=== PATIENT | female | born 1940 | race African-American/Black ===

== ENCOUNTER 2016-08-09 20:50 | Emergency (ER) | payer MEDICARE, OTHER ==
[~2016-08-09] VITALS: Ht 157.5 cm; Wt 81.8 kg
[~2016-08-09 20:50] MED LIST: ALLOPURINOL100 MG PO; AMLOPIDINE PO; ATENOLOL50 MG PO; BUDEPRION SR150 M1 PO; CENTRUM SILVER1 TA1 PO; DESYREL 50MG50 MG PO; DESYREL PO; FISH OIL1 IU PO; GARLIC SUPPLEM300 MG PO; NITROSTAT0.4 MG/TAB SL; NORVASC2.5 MG PO; PILOCARPINE OP; SIMCOR; SIMCOR 500 MG-21 TER PO; TENORMIN 5050 MG/TAB PO; VITAMIN B12 PO; WELLBUTRIN SR150 M1 PO; ZYLOPRIM 300MG300 MG PO
[2016-08-09 20:52] VITALS: TEMP 99.2
[2016-08-09 21:40] LABS: BASO % 0.2 % (0.0-2.0); GRAN % 55.6 % (42.2-75.2); HEMATOCRIT 44.4 % (37.0-47.0); HEMOGLOBIN 14.2 g/dl (12.5-16.0); LYMPH # 1.3 (1.2-3.4); LYMPH % 24.7 % (20.0-51.0); MEAN CELL VOLUME 81 fl (80.0-100.0); MEAN CORPUSCULAR HEMOGLOBIN 26 pg (27.0-31.0); MEAN CORPUSCULAR HGB CONC 32 g/dl (33.0-37.0); MEAN PLATELET VOLUME 10.7 fl (7.4-10.4); MONO % 19.3 % (1.7-9.3); PLATELET COUNT 125 K/mm3 (130-400); RED BLOOD COUNT 5.49 M/mm3 (4.10-5.30); REDCELL DISTRIBUTION WIDTH-CV 15.6 % (11.5-14.5); WHITE BLOOD COUNT 5.4 K/mm3 (4.8-10.8)
[2016-08-09 21:46] LABS: ADJUSTED CALCIUM 8.6 mg/dL (8.4-10.2); ALANINE AMINOTRANSFERASE 31 U/L (9-52); ALBUMIN 4.2 gm/dL (3.5-5.0); ALKALINE PHOSPHATASE 77 U/L (50-136); ANION GAP 12 mmol/L (7-16); BILIRUBIN,TOTAL 0.9 mg/dL (0.0-1.0); BLOOD UREA NITROGEN 11 mg/dL (7-17); CALCIUM 8.8 mg/dL (8.4-10.2); CARBON DIOXIDE 26 mmol/L (22-30); CHLORIDE 101 mmol/L (98-107); CREATININE, serum 0.87 mg/dL (0.52-1.25); GLUCOSE 89 mg/dL (74-106); POTASSIUM 3.8 mmol/L (3.4-5.0); SODIUM 139 mmol/L (137-145); TOTAL PROTEIN 7.4 gm/dL (6.4-8.2)
[2016-08-09 21:51] LABS: INFLUENZA B NEGATIVE
[2016-08-09 21:58] LABS: B-TYPE NATRIURETIC PEPTIDE 67 pg/mL (0-450)
[2016-08-09 21:59] LABS: TROPONIN-I < 0.012 ng/mL (0.000-0.034)
[2016-08-09] MEDS ORDERED: ZITHROMAX 250M250 MG PO (22:22)
[2016-08-09] MEDS ORDERED: PREDNISONE20 MG PO (22:22)
[2016-08-09 22:33] VITALS: BP 154/87; PULSE 73
== END 2016-08-09 22:33 | disposition home or self-care (01) ==
LOC: COL.ER 20:50
PROVIDERS: Emergency Medicine
DX: J20.9 Acute bronchitis, unspecified (principal); F17.210 Nicotine dependence, cigarettes, uncomplicated; I10 Essential (primary) hypertension
CPT/HCPCS: J7512

== ENCOUNTER → 2016-12-27 | Outpatient (CLI) | payer MEDICARE ==
[~2016-12-27] MED LIST changes: +PREDNISONE20 MG PO; +ZITHROMAX 250M250 MG PO
== END ==
LOC: MC.RAD 13:45
DX: Z12.31 Encounter for screening mammogram for malignant neoplasm of breast (principal)

== ENCOUNTER → 2018-04-14 | Outpatient (CLI) | payer MEDICARE, OTHER | LOC: MC.RAD 14:00 | DX: Z12.31 Encounter for screening mammogram for malignant neoplasm of breast (principal) ==

== ENCOUNTER 2018-10-17 01:33 | Emergency (ER) | payer MEDICARE, OTHER ==
[~2018-10-17] VITALS: Ht 160 cm; Wt 81.8 kg
[2018-10-17 01:39] VITALS: TEMP 98.2
[2018-10-17 01:54] LABS: BASO % 0.4 % (0.0-2.0); EOS # 0.1 (0.0-0.7); EOS % 0.8 % (0-4.0); GRAN % 54.7 % (42.2-75.2); HEMATOCRIT 48.1 % (37.0-47.0); LYMPH # 3.7 (1.2-3.4); LYMPH % 33.9 % (20.0-51.0); MEAN CELL VOLUME 84 fl (80.0-100.0); MEAN CORPUSCULAR HEMOGLOBIN 26 pg (27.0-31.0); MEAN CORPUSCULAR HGB CONC 31 g/dl (33.0-37.0); MEAN PLATELET VOLUME 11.9 fl (7.4-10.4); MONO # 1.1 (0.1-0.6); MONO % 9.7 % (1.7-9.3); PLATELET COUNT 170 K/mm3 (130-400); RED BLOOD COUNT 5.74 M/mm3 (4.10-5.30); REDCELL DISTRIBUTION WIDTH-CV 15.6 % (11.5-14.5)
[2018-10-17 02:08] LABS: ALANINE AMINOTRANSFERASE 10 U/L (9-52); ALBUMIN 4.7 gm/dL (3.5-5.0); ALKALINE PHOSPHATASE 111 U/L (50-136); ANION GAP 12 mmol/L (7-16); AST,SGOT 30 U/L (15-37); BILIRUBIN,TOTAL 0.6 mg/dL (0.0-1.0); BLOOD UREA NITROGEN 14 mg/dL (7-17); CALCIUM 9.2 mg/dL (8.4-10.2); CARBON DIOXIDE 27 mmol/L (22-30); CHLORIDE 104 mmol/L (98-107); CREATININE, serum 0.97 (0.52-1.25); GLUCOSE 115 mg/dL (74-106); POTASSIUM 3.9 mmol/L (3.4-5.0); SODIUM 143 mmol/L (137-145); TOTAL PROTEIN 8.1 gm/dL (6.4-8.2)
[2018-10-17 02:22] LABS: TROPONIN-I < 0.012 ng/mL (0.000-0.035)
[2018-10-17] MEDS ORDERED: CATAPRES 0.1MG0.1 MG PO (03:51)
[2018-10-17 04:14] VITALS: BP 124/53; PULSE 52
== END 2018-10-17 04:10 | disposition home or self-care (01) ==
LOC: COL.ER 01:33
PROVIDERS: Emergency Medicine
DX: I10 Essential (primary) hypertension (principal); E78.5 Hyperlipidemia, unspecified

== ENCOUNTER 2020-04-12 11:54 | Emergency (ER) | payer MEDICARE, OTHER ==
[~2020-04-12] VITALS: Ht 165.1 cm; Wt 86.4 kg
[~2020-04-12 11:54] MED LIST changes: +CATAPRES 0.1MG0.1 MG PO
[2020-04-12 11:55] VITALS: TEMP 98.3
[2020-04-12] MEDS ORDERED: TOPROL XL 50MG50 MG (12:05)
[2020-04-12 12:45] LABS: HEMATOCRIT 44.9 % (37.0-47.0); HEMOGLOBIN 13.9 g/dl (12.5-16.0); MEAN CELL VOLUME 82 fl (80.0-100.0); MEAN CORPUSCULAR HEMOGLOBIN 25 pg (27.0-31.0); MEAN CORPUSCULAR HGB CONC 31 g/dl (33.0-37.0); MEAN PLATELET VOLUME 9.7 fl (7.4-10.4); PLATELET COUNT 162 K/mm3 (130-400); RED BLOOD COUNT 5.48 M/mm3 (4.10-5.30); REDCELL DISTRIBUTION WIDTH-CV 14.6 % (11.5-14.5)
[2020-04-12 12:47] LABS: PROTHROMBIN TIME 11.2 SECONDS (9.7-12.8)
[2020-04-12 12:50] LABS: PARTIAL THROMBOPLASTIN TIME 36.5 SECONDS (26.0-37.0)
[2020-04-12 12:54] LABS: ALBUMIN 4.3 gm/dL (3.5-5.0); CALCIUM 8.4 mg/dL (8.4-10.2); CREATININE, serum 0.99 (0.52-1.25); POTASSIUM 4.1 mmol/L (3.4-5.0); TOTAL PROTEIN 7.2 gm/dL (6.4-8.2)
[2020-04-12 13:05] LABS: TROPONIN-I 0.024 ng/mL (0.000-0.035)
[2020-04-12 13:07] LABS: EOSINOPHIL 2 % (0-4); LYMPHOCYTE 14 % (20.0-51.0); NEUTROPHILS 78 % (42.0-75.2); PLATELET ESTIMATE NORMAL (NORMAL)
[2020-04-12 13:23] LABS: TSH w REFLEX 1.29 uIU/mL (0.465-4.680)
[2020-04-12] MEDS ORDERED: LOPRESSOR 550 MG/TAB PO (13:36)
[2020-04-12 13:47] VITALS: BP 143/65; PULSE 75
== END 2020-04-12 13:52 | disposition home or self-care (01) ==
LOC: COL.ER 11:54
PROVIDERS: Family Medicine
DX: I47.1 Supraventricular tachycardia (principal); I10 Essential (primary) hypertension; F17.200 Nicotine dependence, unspecified, uncomplicated; Z79.899 Other long term (current) drug therapy

== ENCOUNTER 2020-08-30 06:59 | Day surgery (SDC) | payer MEDICARE, OTHER ==
[~2020-08-30] VITALS: Ht 165.1 cm; Wt 84.4 kg
[2020-08-30] VITALS (14 sets, daily range): BP systolic 96–155; BP diastolic 45–74; PULSE 61–73; TEMP 97.4–98.6
[~2020-08-30 06:59] MED LIST changes: +LOPRESSOR 550 MG/TAB PO; +TOPROL XL 50MG50 MG
[2020-08-30] MEDS ORDERED: NORVASC 5MG5 MG/TAB PO (07:22)
[2020-08-30] MEDS ORDERED: ASPIRIN E.C. 8181 MG PO (07:22)
[2020-08-30] MEDS ORDERED: TOPROL XL 50MG50 MG PO (07:23)
[2020-08-30] MEDS ORDERED: WELLBUTRIN SR150 M1 PO (07:23)
[2020-08-30] MEDS ORDERED: ZOCOR 20MG20 MG PO (07:24)
[2020-08-30] MEDS ORDERED: VITAMIN FLUSH-F1 CAP PO (07:24)
[2020-08-30 08:29] LABS: HEMATOCRIT 43.7 % (37.0-47.0); HEMOGLOBIN 13.5 g/dl (12.5-16.0); MEAN CELL VOLUME 80 fl (80.0-100.0); MEAN CORPUSCULAR HEMOGLOBIN 25 pg (27.0-31.0); MEAN CORPUSCULAR HGB CONC 31 g/dl (33.0-37.0); MEAN PLATELET VOLUME 10.4 fl (7.4-10.4); PLATELET COUNT 190 K/mm3 (130-400); RED BLOOD COUNT 5.49 M/mm3 (4.10-5.30); REDCELL DISTRIBUTION WIDTH-CV 15.3 % (11.5-14.5)
[2020-08-30 08:36] LABS: INR 1.1 (0.8-3.0); PROTHROMBIN TIME 12.1 SECONDS (9.7-12.8)
[2020-08-30 08:38] LABS: ALBUMIN 4.2 gm/dL (3.5-5.0); BILIRUBIN,TOTAL 0.6 mg/dL (0.0-1.0); CALCIUM 8.9 mg/dL (8.4-10.2); CREATININE, serum 1.06 (0.52-1.25); MAGNESIUM 2.4 mg/dL (1.6-2.3); POTASSIUM 4.1 mmol/L (3.4-5.0); TOTAL PROTEIN 7.5 gm/dL (6.4-8.2)
--- NOTE | 2020-08-30 09:47 | NUR ---
SEE MERGE DOCUMENTATION FOR MEDICATION ADMINISTRATION AND INTRA/POST PROCEDURE ASSESSMENTS.
--- NOTE | 2020-08-30 11:00 | NUR ---
Pt recently arrived from having pacemaker placed. She is doing well and has no complaints of pain. She states that her stomach hurts and is slightly nauseated. She feels it is due to not eating. Crackers given to her at this time. No other complaints. Drsg to left chest wall is CDI. Pt does have a visitor with her at this time
--- NOTE | 2020-08-30 16:31 | NUR ---
Pt doing well. She has been up and voided with no difficulty. She states that she is overall feeling better and requested some ice cream and I then ordered her a dinner tray. She is having some pain at the incision site, pain medication requested. No other needs, will continue to monitor
--- NOTE | 2020-08-30 17:53 | NUR ---
Pt taking PO well with no complaints. She is currently resting with her eyes closed and even non labored breathing
--- NOTE | 2020-08-30 20:00 | NUR ---
Assessment complete. Patient is alert and oriented but very [place]; Some communication is written down to ensure proper education. Patient has no complaints of pain. Left chest pacemaker insertion site is CDI and HR is normal/regular. No edema is noted. No new concerns, call light in reach.
[2020-08-31 00:36] VITALS: BP 126/61; PULSE 64; TEMP 98.1
[2020-08-31 04:33] VITALS: BP 136/54; PULSE 69; TEMP 98
[2020-08-31 06:19] LABS: BASO % 0.2 % (0.0-2.0); EOS % 0.4 % (0-4.0); GRAN # 7.4 (1.4-6.5); GRAN % 67.3 % (42.2-75.2); HEMATOCRIT 40.8 % (37.0-47.0); HEMOGLOBIN 12.2 g/dl (12.5-16.0); LYMPH # 2.4 (1.2-3.4); LYMPH % 21.6 % (20.0-51.0); MEAN CELL VOLUME 81 fl (80.0-100.0); MEAN CORPUSCULAR HEMOGLOBIN 24 pg (27.0-31.0); MEAN CORPUSCULAR HGB CONC 30 g/dl (33.0-37.0); MONO # 1.1 (0.1-0.6); MONO % 10.1 % (1.7-9.3); PLATELET COUNT 155 K/mm3 (130-400); RED BLOOD COUNT 5.02 M/mm3 (4.10-5.30); REDCELL DISTRIBUTION WIDTH-CV 15.5 % (11.5-14.5)
[2020-08-31 06:30] LABS: ALBUMIN 3.8 gm/dL (3.5-5.0); BILIRUBIN,TOTAL 0.3 mg/dL (0.0-1.0); CALCIUM 8.3 mg/dL (8.4-10.2); CREATININE, serum 1.02 (0.52-1.25); TOTAL PROTEIN 6.6 gm/dL (6.4-8.2)
--- NOTE | 2020-08-31 06:33 | NUR ---
Patient had a spell of nausea once overnight and received 4mg PRN Zofran, which relieved the nausea. She is currently resting comfortably in bed. Pacemaker interrogation has been completed.
[2020-08-31 07:26] VITALS: BP 119/50; PULSE 65; TEMP 98.4
[2020-08-31] MEDS ORDERED: TOPROL XL 25MG25 MG PO (09:34)
[2020-08-31] MEDS ORDERED: CEPHALEXIN500 M1 PO (09:47)
--- NOTE | 2020-08-31 10:43 | NUR ---
Initial visit; Patient thanked Solutions Operator for looking in on her and offering God's blessings and keeping her in Solutions Operator's prayers.
--- NOTE | 2020-08-31 12:05 | NUR ---
Discharge orders reviewed with the patient and her friend Liberty, instructed to keep arm in immobilizer as much as possible, no lifting greater than 10 lbs and not to move arm above level of the chest or above her head, instructed that she can shower tonight and to leave steri strips in place, incision dressing is C/D/I at time of discharge, discussed meds and med chagnes, started her on an antibiotic for 5 days/ script for Keflex sent to [facility] for her, discussed changes to Metoprolol and Norvas, instructed patient to follow up with Cardiolgoy as we have scheduled for her, she verbalized understanding of teaching, IV and tele removed, leaving with her friends HEAVENLY Koenig escorted her ou tthe door by wheelchair
== END 2020-08-31 12:11 | disposition home or self-care (01) ==
LOC: COL.CAR 06:59 → MEDICAL 10:45 → COL.CAR 08-31 12:11
PROVIDERS: Internal Medicine Cardiovascular Disease
DX: I49.5 Sick sinus syndrome (principal); I47.1 Supraventricular tachycardia; I10 Essential (primary) hypertension; I08.1 Rheumatic disorders of both mitral and tricuspid valves; Z20.822 Contact with and (suspected) exposure to COVID-19; Z79.899 Other long term (current) drug therapy; Z79.82 Long term (current) use of aspirin
CPT/HCPCS: OP; C1769; C1785; C1894; C1898; J0690; J2250; J2405; J3010; J7030

== ENCOUNTER 2021-02-06 23:03 | Emergency (ER) | payer MEDICARE, OTHER ==
[~2021-02-06] VITALS: Ht 157.5 cm; Wt 81.8 kg
[~2021-02-06 23:03] MED LIST changes: +ASPIRIN E.C. 8181 MG PO; +CEPHALEXIN500 M1 PO; +NORVASC 5MG5 MG/TAB PO; +TOPROL XL 25MG25 MG PO; +TOPROL XL 50MG50 MG PO; +VITAMIN FLUSH-F1 CAP PO; +ZOCOR 20MG20 MG PO
[2021-02-06 23:47] LABS: BASO # 0.1 (0.0-0.2); BASO % 0.5 % (0.0-2.0); EOS # 0.1 (0.0-0.7); EOS % 0.7 % (0-4.0); GRAN % 59.2 % (42.2-75.2); HEMATOCRIT 45.3 % (37.0-47.0); HEMOGLOBIN 14.1 g/dl (12.5-16.0); LYMPH # 2.9 (1.2-3.4); LYMPH % 28.9 % (20.0-51.0); MEAN CELL VOLUME 79 fl (80.0-100.0); MEAN CORPUSCULAR HEMOGLOBIN 25 pg (27.0-31.0); MEAN CORPUSCULAR HGB CONC 31 g/dl (33.0-37.0); MEAN PLATELET VOLUME 11.1 fl (7.4-10.4); MONO % 10.3 % (1.7-9.3); PLATELET COUNT 175 K/mm3 (130-400); RED BLOOD COUNT 5.71 M/mm3 (4.10-5.30); REDCELL DISTRIBUTION WIDTH-CV 16.4 % (11.5-14.5)
[2021-02-07 00:06] LABS: ALANINE AMINOTRANSFERASE 20 U/L (4-34); ALBUMIN 4.4 gm/dL (3.5-5.0); ALKALINE PHOSPHATASE 86 U/L (50-136); ANION GAP 8 mmol/L (7-16); AST,SGOT 37 U/L (15-37); BILIRUBIN,TOTAL 0.5 mg/dL (0.0-1.0); BLOOD UREA NITROGEN 15 mg/dL (7-17); CALCIUM 8.6 mg/dL (8.4-10.2); CARBON DIOXIDE 24 mmol/L (22-30); CHLORIDE 105 mmol/L (98-107); CREATININE, serum 1.01 (0.52-1.25); GLUCOSE 135 mg/dL (74-106); POTASSIUM 4.2 mmol/L (3.4-5.0); SODIUM 138 mmol/L (137-145); TOTAL PROTEIN 7.7 gm/dL (6.4-8.2)
[2021-02-07 00:21] LABS: TROPONIN-I < 0.012 ng/mL (0.000-0.035)
[2021-02-07 01:08] LABS: COLLECTION METHOD CLEAN CATCH
[2021-02-07 01:14] LABS: MUCOUS Present /lpf; PH 6 (5-8); URINE APPEARANCE Clear; URINE BACTERIA None Seen /hpf; URINE BILIRUBIN Negative (NEGATIVE); URINE BLOOD Negative (NEGATIVE); URINE COLOR Yellow; URINE GLUCOSE Negative (NEGATIVE); URINE KETONE Negative (NEGATIVE); URINE LEUKOCYTE ESTERASE Negative (NEGATIVE); URINE NITRATE Negative (NEGATIVE); URINE PROTEIN(semi-quant) Negative (NEGATIVE); URINE RBC 0-2 /hpf; URINE UROBILINOGEN Negative (NEGATIVE)
[2021-02-07 01:22] VITALS: BP 150/84; PULSE 69
== END 2021-02-07 01:35 | disposition home or self-care (01) ==
LOC: COL.ER 23:03
PROVIDERS: Emergency Medicine
DX: I10 Essential (primary) hypertension (principal); E78.5 Hyperlipidemia, unspecified; Z79.899 Other long term (current) drug therapy; Z95.0 Presence of cardiac pacemaker

== ENCOUNTER → 2024-01-16 | Outpatient (CLI) | payer MEDICARE ==
[~2024-01-16] MED LIST changes: +LIPITOR20 MG PO; +PRINIVIL5 MG PO; +TOPROL XL100 MG PO; +ZESTRIL 10MG10 MG PO
== END ==
LOC: MC.RAD 14:23
DX: Z12.31 Encounter for screening mammogram for malignant neoplasm of breast (principal); Z95.0 Presence of cardiac pacemaker

== ENCOUNTER 2024-03-06 00:30 | Inpatient (IN) | payer MEDICARE ==
[2024-03-06] VITALS (12 sets, daily range): BP systolic 128–155; BP diastolic 73–105; PULSE 69–72; TEMP 97.7–101
[~2024-03-06] VITALS: Ht 162.6 cm; Wt 83.2 kg
[~2024-03-06 00:30] MED LIST changes: +Topical Skin Adhesive 1 EACH (1 ML) TOP ONE
[2024-03-06] MEDS ORDERED: LR 1,000 ML IV ONE (00:45)
[2024-03-06] MEDS ORDERED: Ondansetron 4 MG/2 ML VIAL IV ONE ×2 (00:45→01:45)
[2024-03-06] MEDS ORDERED: Morphine 4 MG/ML VIAL IV ONE (00:45)
[2024-03-06 01:24] LABS: BASO # 0.1 K/mm3 (0.0-0.2); BASO % 0.4 % (0.0-2.0); EOS % 0.1 % (0.0-4.0); GRAN # 10.6 K/mm3 (1.4-6.5); GRAN % 77.5 % (42.2-75.2); HEMATOCRIT 45.3 % (37.0-47.0); HEMOGLOBIN 13.8 g/dl (12.5-16.0); LYMPH # 2.3 K/mm3 (1.2-3.4); LYMPH % 16.8 % (20.0-51.0); MEAN CELL VOLUME 82 fl (80.0-100.0); MEAN CORPUSCULAR HEMOGLOBIN 25 pg (27-31); MEAN CORPUSCULAR HGB CONC 31 g/dl (33.0-37.0); MEAN PLATELET VOLUME 10.9 fl (7.4-10.4); MONO # 0.6 K/mm3 (0.1-0.6); MONO % 4.7 % (1.7-9.3); PLATELET COUNT 137 K/mm3 (130-400); REDCELL DISTRIBUTION WIDTH-CV 15.7 % (11.5-14.5)
[2024-03-06 01:35] LABS: BILIRUBIN,TOTAL 0.9 mg/dL (0.2-1.2); C-REACTIVE PROTEIN 0.34 mg/dL (0.00-0.50); CALCIUM 9.5 mg/dL (8.4-10.2); CREATININE, serum 1.01 mg/dL (0.57-1.11); POTASSIUM 4.3 mEq/L (3.5-4.5); TOTAL PROTEIN 7.1 g/dl (6.2-8.1)
[2024-03-06 01:40] LABS: TROPONIN-I 0.012 ng/mL (0.00-0.033)
[2024-03-06] MEDS ORDERED: Iohexol 300 - 100 ML VIAL IV ONE (02:09)
[2024-03-06] MEDS ORDERED: NS 50 ML IV ONE (02:10)
[2024-03-06 03:03] LABS: COLLECTION METHOD CLEAN CATCH
[2024-03-06] MEDS ORDERED: VIIBRYD10 MG PO (03:15)
[2024-03-06] MEDS ORDERED: ZEBETA10 MG PO (03:16)
[2024-03-06] MEDS ORDERED: BENICAR 20MG TA20 MG PO (03:17)
[2024-03-06] MEDS ORDERED: HCTZ 25MG TAB25 MG PO (03:18)
[2024-03-06 03:20] LABS: URINE APPEARANCE CLEAR (CLEAR/HAZY); URINE BLOOD NEGATIVE (NEGATIVE); URINE COLOR YELLOW (YELLOW); URINE GLUCOSE NEGATIVE (NEGATIVE); URINE KETONE TRACE (NEGATIVE); URINE NITRATE NEGATIVE (NEGATIVE); URINE PROTEIN(semi-quant) NEGATIVE (NEGATIVE); URINE UROBILINOGEN 0.2 E.U/dL (0.2-1.0)
[2024-03-06] MEDS ORDERED: Acetaminophen 500 MG TAB PO PRN (03:30)
[2024-03-06] MEDS ORDERED: Ondansetron 4 MG/2 ML VIAL IV PRN ×2 (03:30→23:15)
[2024-03-06] MEDS ORDERED: Morphine 4 MG/ML VIAL IV PRN (03:45)
[2024-03-06] MEDS ORDERED: NS 1,000 ML IV SCH (03:45)
--- NOTE | 2024-03-06 04:18 | NUR ---
PATIENT ADMITTED TO ROOM 327 BROUGHT BY BED FROM ED AND ACCOMPANIED BY SON, Yeimi. VS ARE : BP 155/105 WITH MAP 115. TEMP 97.7, PULSE 69, O2 97 % ON 2L O2 NC, RR 14. PATIENT UNABLE TO ANSWER ASSESSMENT QUESTIONS D/T AMS AND HARD OF HEARING. CALL PLACED TO HOSPITALIST FOR HYPERTENSION. TORB TO ADMINISTER 10MG HYDRALAZINE FOR SYSTOLIC GREATER THAN 160 AND DIASTOLIC GREATER THAN 1OO Q6HR PRN GIVEN.
--- NOTE | 2024-03-06 05:14 | NUR ---
CANNOT ADMIT PATIENT MEDITECH IS LOCKED IN ACK/RECIEVE ORDER. IT HAS BEEN CALLED TICKET # [id number]. ETA FOR RESOLUTION IS 4HRS. CHARGE NURSE AND OCCUPATIONAL THERAPIST'S ASSISTANT AWARE. PATIENT BP IS STABLE AT 152/75. NO PLAN OF CARE OR ORDERS CAN BE PLACED AT THIS TIME. INTAKE AND ASSESSMENT FINISHED WITH MED REC.
--- NOTE | 2024-03-06 05:43 | NUR ---
IT ISSUE FINALLY RESOLVED. PLAN OF CARE FILED ADDITIONAL INTERVENTIONS AND ORDERS IN PROGRESS.
[2024-03-06] MEDS ORDERED: hydrALAZINE 20 MG/ML 1 ML VIAL IV PRN (06:15)
--- NOTE | 2024-03-06 09:00 | NUR ---
PATIENT ALERT AND ORIENTED TO NAME AND DAY OF NOT YEAR. ON 2 L /. FLUIDS INFUSING PER EMAR. PATIENT CURRETLY NPO STATUS. DENIES PAIN AT THIS TIME BUT SOME DISCOMFORT TO RIGHT UPPER QUADRANT WITH PALPATION.FAMILY AT BEDSIDE. CALL LIGHT WITHIN REACH. BED AT LOWEST POSITION.BED ALARM ON.
--- NOTE | 2024-03-06 09:55 | NUR ---
Director Of Content Marketing met with patient at bedside to discuss discharge planning. Patient stated that she lives alone in [place]. Patient designated her son Cam as her emergency contact (P# [phone]) but that she was "not sure" if she had a DPOA. When asked, patient declined the want to arrange one at this time. Patient reports that her PCP is Dr. Tsai and that her pharmacy of choice is [facility] in [place]. She denied any need for assistance in accessing and affording her medications, and any use of DMEs or home health services, and confirmed that she is independent with ADLs and transportation. Due to the patient's Re-Admit status, SW asked patient about any interest in home health services, but patient declined at this time. Home Health services list was left with patient at bedside. Patient declined any further concerns regarding discharge at this time. Plan: D/C to home.
--- NOTE | 2024-03-06 10:04 | NUR ---
Bus Greaser met with patient and son Yeimi (P#[phone]) at bedside to discuss discharge planning. Prior to meeting with patient, SW spoke with PT who mentioned a possible need for SNF placement. Patient was awake for some time, but fell asleep during the conversation, but son was able to answer questions for SW. Per son, the patient lives in [facility] with him, but does not have a DPOA at this time. Son relayed that her PCP is Dr. Tsai and that her pharmacy of choice is [facility]. Patient's son reports that she is independent in ADLs and Transportation, and that she does own a walker and a cane at home but that she "hardly ever" uses the walker. Patient's son reports that she has not utilized home health services in the past. concession worker discussed possible placement options and post-discharge care with son. Patient's son was agreeable to education about SNF, but stated that his mother may be more comfortable with services in the home due to her preference for independence. SW answered any questions and provided son and patient with Medicare.gov lists for SNF and HH services. SW to return to speak with patient and family to further discuss discharge planning. Plan: SNF or Home Health
[2024-03-06] MEDS ORDERED: NIACIN 64 MG-501 TA1 PO (10:11)
[2024-03-06] MEDS ORDERED: ZOCOR 20MG20 MG PO (10:15)
[2024-03-06] MEDS ORDERED: Indocyanine Green 12.5 MG in Water For Injection,Sterile 2.5 ML IV ONE (13:30)
--- NOTE | 2024-03-06 20:00 | NUR ---
DR ISIDORO ESPINOZAIED PER PHONE OF PT'S TEMP OF 101.6 AX, 101.0 ORAL, ORDER REC'D FOR TYLENOL SUPPOSITORY, SUPP GIVEN.
--- NOTE | 2024-03-06 21:51 | NUR ---
RECHECKED TEMP 101 AX AT THIS TIME
[2024-03-06] MEDS ORDERED: Lidocaine PF 2% (20 MG/ML) 5 ML VIAL ONE (22:13)
[2024-03-06] MEDS ORDERED: fentaNYL 50 MCG/ML 5 ML VIAL ONE (22:13)
[2024-03-06] MEDS ORDERED: Rocuronium 50 MG/5 ML Multi-Dose VIAL ONE (22:13)
--- NOTE | 2024-03-06 22:40 | NUR ---
PT TRANSPORTED TO PRE OP PER BED WITH PIPE AND TANK FABRICATOR ZACH, LR INFUSING PER PIV PER GRAVITY. FAMILY HAS LEFT FOR THE NIGHT, PT IS SOMEWHAT ANXIOUS ABOUT THE SURGERY, ZACH WILL LET DR CHAUDHRY KNOW HER CONCERNS.
[2024-03-06] MEDS ORDERED: HYDROmorphone 1 MG/1 ML SYRINGE [PACU/SDC ONLY] IV PRN (23:15)
[2024-03-06] MEDS ORDERED: Meperidine 50 MG/ML 1 ML VIAL IV PRN (23:15)
[2024-03-06] MEDS ORDERED: fentaNYL 50 MCG/ML 1 ML SYRINGE/VIAL [PACU/SDC ONLY] IV PRN (23:15)
[2024-03-06] MEDS ORDERED: Morphine 2 MG/1 ML VIAL [PACU/SDC ONLY] IV PRN (23:15)
[2024-03-06] MEDS ORDERED: droPERidol 2.5 MG/ML 2 ML VIAL IV PRN (23:15)
[2024-03-06] MEDS ORDERED: dexAMETHasone 10 MG/ML VIAL ONE (23:21)
[2024-03-06] MEDS ORDERED: Ondansetron 4 MG/2 ML VIAL ONE (23:21)
[2024-03-07] VITALS (16 sets, daily range): BP systolic 116–150; BP diastolic 57–77; PULSE 69–76; TEMP 97.6–99
[2024-03-07] MEDS ORDERED: Glycopyrrolate 0.2 MG/ML 1 ML VIAL ONE (00:02)
[2024-03-07] MEDS ORDERED: AMOXICILLIN 8751 TAB PO (00:19)
[2024-03-07] MEDS ORDERED: NORCO 325 MG-51 TAB PO (00:19)
--- NOTE | 2024-03-07 01:10 | NUR ---
PT RETURNED FROM PACU, AWAKE, BUT DROWSY, IVF INFUSING PER PIV IN LAC, X5 LAP SITES WITH GLUE, SMALL AMT OF OOZING FROM UMBILICAL SITE, NO C/O PAIN OR NAUSEA AT THIS TIME. ZACH, SECURITY AND PRIVACY CONSULTANT, LEFT VOICEMAIL MESSAGE FOR PT'S SON. PT ON 2L O2 PER NC, PLACED ON DYNAMAP FOR POST OP MONITORING. RETURNED FROM PACU WITH BOTH HEARING AIDES, RIGHT SIDE IN EAR AND LEFT SIDE IN PLASTIC CONTAINER AT BEDSIDE.
[2024-03-07 06:13] LABS: BASO % 0.1 % (0.0-2.0); GRAN # 14.3 K/mm3 (1.4-6.5); HEMATOCRIT 39.5 % (37.0-47.0); HEMOGLOBIN 12.3 g/dl (12.5-16.0); LYMPH # 1.3 K/mm3 (1.2-3.4); LYMPH % 7.6 % (20.0-51.0); MEAN CELL VOLUME 81 fl (80.0-100.0); MEAN CORPUSCULAR HEMOGLOBIN 25 pg (27-31); MEAN CORPUSCULAR HGB CONC 31 g/dl (33.0-37.0); MEAN PLATELET VOLUME 11.6 fl (7.4-10.4); MONO # 0.7 K/mm3 (0.1-0.6); MONO % 4.1 % (1.7-9.3); PLATELET COUNT 107 K/mm3 (130-400); RED BLOOD COUNT 4.88 M/mm3 (4.10-5.30); REDCELL DISTRIBUTION WIDTH-CV 15.9 % (11.5-14.5)
[2024-03-07 06:34] LABS: CREATININE, serum 1.02 mg/dL (0.57-1.11); POTASSIUM 3.9 mEq/L (3.5-4.5)
--- NOTE | 2024-03-07 06:40 | NUR ---
Pt laying in bed. Denies needs at this time. Call light in reach and bed alarm on.
--- NOTE | 2024-03-07 07:06 | NUR ---
PT AWAKE AND ALERT THIS AM, REMAINS ON 2L O2 PER NC, IVF INFUSING PER PIV, TAKING SMALL AMTS OF CLEAR LIQUIDS, NO N/V AND MINIMAL DISCOMFORT TO ABDOMEN. SMALL AMT OF OOZING FROM UMBILICAL OP SITE, OTHER 4 SITES CDI. NO VOID YET
--- NOTE | 2024-03-07 07:53 | NUR ---
Pt laying in bed. Ambulated to bathroom with assistance. A&Ox4. Extremely TEJON. S1S2. Clear lungs. Pt coughing but not productive. ABD round, soft, tender to touch with audible bowel sounds. Pt reported pain 4/10 when moving. Resolved when laying down. Administered Tylenol for comfort. x5 lap sites - upper had mild drainage - placed bandaid. Other 4 are open to air. No further needs. IV in L AC patent with NS at 100 cc/hr. Call light in reach and bed alarm on.
[2024-03-07] MEDS ORDERED: hydroCHLOROthiazide 25 MG TAB PO SCH (09:30)
[2024-03-07] MEDS ORDERED: Olmesartan 20 MG **** subs to Losartan 50 MG PO SCH (09:30)
[2024-03-07] MEDS ORDERED: Losartan 50 MG TAB PO SCH ×2 (09:45→21:00)
[2024-03-07] MEDS ORDERED: Bisoprolol 5 MG TAB PO SCH (10:32)
--- NOTE | 2024-03-07 11:44 | NUR ---
Data: Patient declined spiritual care visit offered during Manufacturer'S Service Representative rounds. Patient would like Manufacturer'S Service Representative to return in the afternoon because she did not sleep well. Assessment: None at this time. Plan of Care: Manufacturer'S Service Representative will return in the afternoon.
--- NOTE | 2024-03-07 11:48 | NUR ---
Social Workers met with patient at bedside to further discuss discharge planning. Patient relayed some confusion regarding her need for either SNF or HH services. Social workers provided education about the services provided through SNF and HH services, as well as recommendations made by PT. After discussion, patient was understanding and agreeable to considering SNF options. Social Workers re-presented patient with Medicare.gov lists for SNF and HH services. Patient stated that she was agreeable to referrals being sent to [facility], [facility], and [facility] but did not state a preference at this time, as long as the facility is within [place]. BENITA faxed referrals to [facility], [facility], and [facility]. Earle contacted SW and asked that a COVID test be done on patient. BENITA contacted SURG nurse and is waiting on confirmation. Plan: D/C to SNF
--- NOTE | 2024-03-07 12:32 | NUR ---
Data: Follow-up visit for afternoon spiritual care. Patient's Daughter is visiting. Patient's lunch has arrived. Assessment: None at this time. Plan of Care: Allow time for Daughter to visit and for Patient to eat lunch. Clothing And Textiles Teacher provided a prayer for the meal and for healing. Patient's Daughter thanked Clothing And Textiles Teacher. Chaplains will remain available as needed/requested while Patient is admitted to this hospital.
[2024-03-08] VITALS (12 sets, daily range): BP systolic 115–165; BP diastolic 68–80; PULSE 67–70; TEMP 98–99.2
--- NOTE | 2024-03-08 02:28 | NUR ---
PATIENT RESTING IN BED WITH TV ON WITH NO FAMILY PRESENT WITH NO ACUTE DISTRESS NOTED. PATIENT ON 1 LITERS OF OXYGEN VIA NC. INT TO LEFT AC INTACT WITH NO COMPLICATIONS NOTED. ASSESSMENT AND MEDICATION ADMINISTRATION COMPLETED AT THIS TIME. PATIENT REQUESTED CUP OF WATER AND WAS GIVEN CUP OF ICE WATER. PATIENT TOLERATED WELL. ALL NEEDS MET. BED IN LOW POSITION WITH WHEELS LOCKED WITH RAILS UP X3 AND CALL LIGHT WITHIN REACH. BED ALARM ON.
[2024-03-08 05:31] LABS: BASO % 0.1 % (0.0-2.0); GRAN # 13.8 K/mm3 (1.4-6.5); GRAN % 82.5 % (42.2-75.2); HEMATOCRIT 37.6 % (37.0-47.0); HEMOGLOBIN 11.7 g/dl (12.5-16.0); LYMPH # 1.6 K/mm3 (1.2-3.4); LYMPH % 9.4 % (20.0-51.0); MEAN CELL VOLUME 81 fl (80.0-100.0); MEAN CORPUSCULAR HEMOGLOBIN 25 pg (27-31); MEAN CORPUSCULAR HGB CONC 31 g/dl (33.0-37.0); MEAN PLATELET VOLUME 11.9 fl (7.4-10.4); MONO # 1.2 K/mm3 (0.1-0.6); MONO % 7.2 % (1.7-9.3); PLATELET COUNT 102 K/mm3 (130-400); RED BLOOD COUNT 4.67 M/mm3 (4.10-5.30); REDCELL DISTRIBUTION WIDTH-CV 15.9 % (11.5-14.5)
[2024-03-08 05:45] LABS: CREATININE, serum 1.07 mg/dL (0.57-1.11); POTASSIUM 3.8 mEq/L (3.5-4.5)
--- NOTE | 2024-03-08 06:46 | NUR ---
Pt sleeping in bed. Call light in reach and bed alarm on.
--- NOTE | 2024-03-08 08:53 | NUR ---
Pt up in bathrrom with PCT. A&Ox4. VSS. S1S2. Clear lungs in upper lobes, diminished in bases. ABD round, soft, non-tender with audible bowel sounds. x5 lap sites are WA, upper site has bandaid in place. IV in L forearm patent with NS running at 100 c/hr. Pt reporting pain in L hand and feeling swollen. Non-pitting edema in L hand. Stopped IV fluids. Will continue to monitor. Pt denies other pain, n/v, headahce, dizziness. Pt set up in chair for breakfast. Call light in reach and bed alarm on.
[2024-03-08] MEDS ORDERED: NS 1,000 ML IV ONE (11:45)
--- NOTE | 2024-03-08 21:50 | NUR ---
Patient resting in bed. Denies any pain at this time. Assessment complete. IV in left AC flushes easily without complications. Patient states she would like to go for a walk, patient ambulated in hallway then returned to room. Upon returning to room patients oxygen was in the mid to low 80s, placed on 2L NC and returned to mid 90s. Patient was stating mid 90s on room air before ambulating in hallway. Call light and personal items in reach. Bed in low position and bed alarm on.
[2024-03-09] VITALS (7 sets, daily range): BP systolic 150–170; BP diastolic 76–84; PULSE 67–70; TEMP 97.9–98.4
[2024-03-09 05:54] LABS: BASO % 0.2 % (0.0-2.0); EOS # 0.1 K/mm3 (0.0-0.7); GRAN # 8.6 K/mm3 (1.4-6.5); GRAN % 68.9 % (42.2-75.2); HEMOGLOBIN 11.3 g/dl (12.5-16.0); LYMPH # 2.6 K/mm3 (1.2-3.4); LYMPH % 20.4 % (20.0-51.0); MEAN CELL VOLUME 81 fl (80.0-100.0); MEAN CORPUSCULAR HEMOGLOBIN 26 pg (27-31); MEAN CORPUSCULAR HGB CONC 31 g/dl (33.0-37.0); MEAN PLATELET VOLUME 11.9 fl (7.4-10.4); MONO # 1.1 K/mm3 (0.1-0.6); MONO % 8.6 % (1.7-9.3); PLATELET COUNT 100 K/mm3 (130-400); RED BLOOD COUNT 4.44 M/mm3 (4.10-5.30); REDCELL DISTRIBUTION WIDTH-CV 16.1 % (11.5-14.5)
[2024-03-09 06:06] LABS: CALCIUM 7.7 mg/dL (8.4-10.2); CREATININE, serum 0.91 mg/dL (0.57-1.11); POTASSIUM 3.7 mEq/L (3.5-4.5)
--- NOTE | 2024-03-09 09:34 | NUR ---
PATIENT AAOX4. SITTING UP RIGHT IN HER CHAIR. HEAD TO TOE ASSESSMENT COMPLETED AND MORNING MEDS GIVEN. BED LINENS CHANGED, AWAITING TO BE BATHED BY AID. CALL LIGHT WITHIN REACH AND NONSKID SOCKS ARE ON.
[2024-03-09] MEDS ORDERED: AMOXICILLIN 8751 TAB PO (11:08)
--- NOTE | 2024-03-09 13:45 | NUR ---
PATIENT DISCHARGED WITH [facility]. CALL REPORT TO NURSE AT [facility]. D/C IV, PATIENT DRESSED AND SENT WITH BELONGINGS.
--- NOTE | 2024-03-09 15:14 | NUR ---
Appliance Mechanic attended clinical rounds and patient is ready for discharge once SNF placement is secured. BENITA contacted patient's son, Yeimi who advised their first preference is [facility]. [facility]. SW met with patient to present IM. Patient had great difficulty hearing SW, but did clearly state she did not want to go to [facility]. Patient stated she would prefer [facility]. BENITA contacted Yeimi and completed IM with him over the phone. BENITA also updated him on patient preference for [facility] and he was agreeable to this. BENITA contacted Gayle at [facility] and sent discharge orders via secure email. Transport time was set for 1230 and provided to both patient and Yeimi. Discharge Plan: [facility]
== END 2024-03-09 13:30 | DRG 418 ==
LOC: COL.ER 00:30 → SURG 03:27
PROVIDERS: Emergency Medicine; Physician Assistant; Surgery; ADMIT Internal Medicine
PROC: 8E0W4CZ Robotic Assisted Procedure of Trunk Region, Percutaneous Endoscopic Approach (ICD-10-PCS; 2024-03-06)
PROC: 0FT44ZZ Resection of Gallbladder, Percutaneous Endoscopic Approach (ICD-10-PCS; principal; 2024-03-06 16:15)
DX: K80.10 Calculus of gallbladder with chronic cholecystitis without obstruction (principal); C34.31 Malignant neoplasm of lower lobe, right bronchus or lung; E78.5 Hyperlipidemia, unspecified; F32.A Depression, unspecified; E88.810 Metabolic syndrome; E66.9 Obesity, unspecified; I49.5 Sick sinus syndrome; I10 Essential (primary) hypertension; Z90.710 Acquired absence of both cervix and uterus; Z95.0 Presence of cardiac pacemaker; Z23 Encounter for immunization; Z68.31 Body mass index [BMI] 31.0-31.9, adult
CPT/HCPCS: A9284; J1100; J2270; J2405; J2543; J2704; J3010; J7030; J7120; Q9967